=== PATIENT | female | born 1980 | race Caucasian/White ===

== ENCOUNTER 2019-01-24 01:08 | Emergency (ER) | payer MEDICAID, OTHER ==
[~2019-01-24] VITALS: Ht 167.6 cm; Wt 64.7 kg
[2019-01-24] MEDS ORDERED: GLUCAGON 1 MG ONE (01:25)
[2019-01-24] MEDS ORDERED: GLUCAGON 1 MG IVPush STA (01:27)
--- NOTE | 2019-01-24 01:29 | NUR ---
TASK RN: PT REPORTS "PIECE OF STEAK" LODGED IN THROAT X 1100. AIRWAY PATENT; SPO2 >90% ON RA. PT NOT MANAGING SECRETIONS W/ FREQUENT SPITTING/HEAVING. PT DENIES HX OF SAME/GI HX. IV ESTABLISHED, LABS DRAWN. ERP AT BEDSIDE FOR INITIAL ASSESSMENT.
[2019-01-24] MEDS ORDERED: SODIUM CHLORIDE FLUSH 10ML SYR IVF ONE (01:30)
--- NOTE | 2019-01-24 01:59 | NUR ---
glucagon wasnt working GI was called
[2019-01-24] MEDS ORDERED: PLEASE ENTER ALLERGIES MC SCH (02:00)
[2019-01-24] MEDS ORDERED: GLUCAGON 1 MG IVPush ONE (02:00)
[2019-01-24] MEDS ORDERED: PROPOFOL 10 MG/ML, 20ML ONE (02:28)
[2019-01-24] MEDS ORDERED: PROPOFOL 10 MG/ML, 20ML IVPush ONE (02:30)
--- NOTE | 2019-01-24 02:51 | NUR ---
pt's rm was moved to T2 for endoscopy
--- NOTE | 2019-01-24 03:00 | NUR ---
PT ATTACHED TO ALL MONITORING EQUIPMENT. ETCO2 NASAL CANNULA PLACED ON PT. CODE CART AT BEDSIDE, AMBU BAG AT BEDSIDE. CONSENT SIGNED. IV FLUIDS INFUSING. ALL VITALS STABLE AT THIS TIME. PT ALERT AND ORIENTED, APPEARS UNCOMFORTABLE, SPITTING UP SECRETIONS IN VOMIT BAG.
--- NOTE | 2019-01-24 03:10 | NUR ---
DR. QUINTERO AT BEDSIDE, PROCEDURE STARTED. 60 MG OF PROPOFOL ADMINISTERED BY DR. NUNEZ.
--- NOTE | 2019-01-24 03:13 | NUR ---
30 MG OF PROPOFOL ADMINISTERED
--- NOTE | 2019-01-24 03:16 | NUR ---
30 MG OF PROPOFOL ADMINSITERED
--- NOTE | 2019-01-24 03:18 | NUR ---
30 MG OF PROPOFOL ADMINISTERED
--- NOTE | 2019-01-24 03:23 | NUR ---
30 MG OF PROPOFOL ADMINISTERED
--- NOTE | 2019-01-24 03:24 | NUR ---
20MG OF PROPOFOL ADMINISTERED
--- NOTE | 2019-01-24 03:26 | NUR ---
20MG OF PROPOFOL ADMINISTERED, TO TOTAL 220MG FOR THE PROCEDURE.
[2019-01-24 03:30] VITALS: BP 168/120
[2019-01-24] MEDS ORDERED: ONDANSETRON 2MG/ML, 2ML ONE (03:31)
--- NOTE | 2019-01-24 03:52 | NUR ---
DR. NUNEZ AT BEDSIDE UPDATING PT ON POC. WAITING FOR PT TO FULLY WAKE UP FOR SAFE DISCHARGE
--- NOTE | 2019-01-24 04:26 | NUR ---
Patient/Caregiver given discharge instructions and they have confirmed that they understand the instructions. Patient ambulatory with steady gait.
== END 2019-01-24 04:27 | disposition home or self-care (01) ==
LOC: ED 04:16
DX: T18.120A Food in esophagus causing compression of trachea, initial encounter (principal)
CPT/HCPCS: 43247; 96374; 99152; 99285; J1610

== ENCOUNTER 2019-02-20 14:30 | Emergency (ER) | payer MEDICAID ==
[~2019-02-20] VITALS: Ht 167.6 cm; Wt 62.9 kg
[2019-02-20 14:33] VITALS: BP 160/100
--- NOTE | 2019-02-20 14:53 | NUR ---
MULTIPLE LESIONS BILATERAL LOWER EXTREMITIES WITH ERYTHEMA. PT STATES THEY STARTED DEVELOPING YESTERDAY
[2019-02-20] MEDS ORDERED: LIDOCAINE-MPF 1%, 5ML INFIL ONE (15:00)
== END 2019-02-20 15:04 | disposition home or self-care (01) ==
LOC: ED 14:58
DX: T78.40XA Allergy, unspecified, initial encounter (principal); L73.8 Other specified follicular disorders; X58.XXXA Exposure to other specified factors, initial encounter; Y93.89 Activity, other specified; Y92.89 Other specified places as the place of occurrence of the external cause; Y99.8 Other external cause status
CPT/HCPCS: 99283

== ENCOUNTER 2021-04-13 14:40 | Emergency (ER) | payer MEDICAID ==
[~2021-04-13] VITALS: Ht 167.6 cm; Wt 64.0 kg
[2021-04-13 14:53] VITALS: BP 156/103
== END 2021-04-13 16:30 | disposition home or self-care (01) ==
LOC: ED 15:20
DX: H65.02 Acute serous otitis media, left ear (principal); T63.441A Toxic effect of venom of bees, accidental (unintentional), initial encounter; Y92.9 Unspecified place or not applicable
CPT/HCPCS: 99283